=== PATIENT | female | born 1970 | race Caucasian/White ===

== ENCOUNTER 2019-09-26 21:54 | Inpatient (IN) | payer OTHER, SELFPAY ==
[~2019-09-26] VITALS: Ht 167.6 cm; Wt 111.1 kg
--- NOTE | 2019-09-26 21:54 | NUR ---
PT TRANSFERED SELF FROM [facility] TO BED 10.
[2019-09-26 22:00] VITALS: BP 120/72
--- NOTE | 2019-09-26 22:00 | NUR ---
PT BIBA C/O SOB AND COUGH X1 WEEK. PT O2 AT 93% ON RA, PLACED ON 2L NC. PT SISTER TESTED + FOR COVID 19 2 WEEKS AGO, PT LIVES WITH SISTER. PT ON TAMIFLU AND TESALON PEARLES FROM PCP SINCE 09/22. ALSO REPORTS BURNING URINATION X1 DAY, TX WITH AZO
[2019-09-26] MEDS ORDERED: PROMETH/CODEINE 6.25-10MG/5ML 5 ML UDC PO ONE (22:30)
--- NOTE | 2019-09-26 22:48 | NUR ---
X-RAY AT BEDSIDE
[2019-09-26 23:05] LABS: LYMPHOCYTES # (AUTO) 0.8 K/uL (2.5-16.5); MEAN CORPUSCULAR HEMOGLOBIN 30 pg (27-31); WHITE BLOOD COUNT (AUTO) 3.3 K/uL (4.8-10.8)
[2019-09-26] MEDS ORDERED: AZITHROMYCIN 500 MG in DEXTROSE 5% 250 ML IV ONE (23:05)
[2019-09-26] MEDS ORDERED: ZINC SULF 220 MG CAP PO ONE (23:05)
[2019-09-26 23:08] LABS: BASOPHILS % (AUTO) 1.4 % (0.0-2.0); EOSINOPHILS % (AUTO) 0.1 % (0.0-4.0); HEMOGLOBIN 11.9 g/dL (12.0-16.0); LYMPHOCYTES % (AUTO) 23.2 % (20.5-51.1); MEAN CORPUSCULAR HGB CONC 33 g/dL (33-37); MEAN CORPUSCULAR VOLUME 91.4 fL (80-94); MONOCYTES # (AUTO) 0.2 K/uL (0.8-1.0); NEUTROPHILS # (AUTO) 2.3 K/uL (1.8-7.7); NEUTROPHILS % (AUTO) 68.3 % (42.2-75.2); PLATELET COUNT (AUTO) 146 K/uL (140-450); RED BLOOD CELL COUNT(AUTO) 3.93 MIL/uL (4.20-5.40); RED CELL DISTRIBUTION WIDTH 13.1 % (11.6-13.7)
[2019-09-26] MEDS ORDERED: cefTRIAXone 1,000 MG VIAL ONE (23:09)
[2019-09-26] MEDS ORDERED: AZITHROMYCIN 500 MG INJ VIAL IV ONE (23:15)
[2019-09-26 23:16] LABS: ANION GAP 12.9 (8-16); CARBON DIOXIDE 27.3 mmol/L (21-32); CREATININE 0.9 mg/dL (0.6-1.3); POTASSIUM 3.2 mmol/L (3.5-5.1); TOTAL BILIRUBIN 0.5 mg/dL (0.0-1.0)
[2019-09-26] MEDS ORDERED: HYDROXYCHLOROQUINE 200 MG TAB PO SCH (23:35)
[2019-09-26 23:43] LABS: APPEARANCE,URINE HAZY (CLEAR); BILIRUBIN,URINE NEGATIVE (NEGATIVE); BLOOD, URINE 3+ (NEGATIVE); COLOR,URINE ORANGE (YELLOW); LEUKOCYTE ESTERASE ,URINE TRACE (NEGATIVE); NITRITE, URINE POSITIVE (NEGATIVE); UGLUCOSE TRACE (NEGATIVE)
[2019-09-27] VITALS (10 sets, daily range): BP systolic 90–106; BP diastolic 45–70
[2019-09-27 00:14] LABS: PROTHROMBIN TIME 9.8 secs (10.8-13.4)
[2019-09-27 00:18] LABS: RBC,URINE TOO NUMEROUS TO COUN /HPF (0-5); WBC,URINE 16-25 (MOD) /HPF (0-5)
--- NOTE | 2019-09-27 00:25 | NUR ---
PT BP 89/44, DR DENNISON NOTIFIED, DR DENNISON TO ORDER FLUIDS FOR PT.
[2019-09-27] MEDS ORDERED: NACL 0.9% 3,500 ML IV ONE (00:30)
[2019-09-27] MEDS ORDERED: MORPHINE SULFATE 2 MG/ML SYR IVP PRN (01:40)
[2019-09-27] MEDS ORDERED: HYDROcodone/APAP 5/325 MG 1 TAB TAB PO PRN (01:40)
[2019-09-27] MEDS ORDERED: DOCUSATE SODIUM 100 MG GELCAP PO PRN (01:40)
[2019-09-27] MEDS ORDERED: POTASSIUM CHLORIDE 10 MEQ TABER PO SCH (02:00)
--- NOTE | 2019-09-27 02:10 | NUR ---
PATIENT CAME INTO UNIT VIA GURNEY. BEDSIDE REPORT GIVEN BY ED NURSE JOO. PATIENT IS AMBULATORY. AAOX4. NO SOB OR DISTRESS NOTED ON 2LPM VIA NASAL CANNULA. IV ACCESS ON RIGHT AC 20 GAUGE PATENT AND INTACT AND RIGHT HAND 22 GAUGE, PATENT AND INTACT. INITIAL ASSESSMENT DONE. SKIN IS INTACT. MRSA SWAB DONE AND SENT TO [facility]. DRY WEIGHT OF 113KG. CONNECTED TO BEDSIDE MONITOR. BED IN LOW, BED LOCKED. SAFETY MEASURES IN PLACE. CALL LIGHT PLACED WITHIN PATIENT REACH. WILL CONTINUE TO MONITOR PATIENT. Addendum: 09/27/19 at 0615 by Susana Plasencia RN PATIENT NOTED WITH LEFT MASTECTOMY.
[2019-09-27 02:12] LABS: BARBITURATE, URINE NEGATIVE ng/ml (NEG <=200); BENZODIAZEPINE, URINE NEGATIVE ng/mL (NEG <=200); CANNABINOID, URINE NEGATIVE ng/mL (NEG <=50); COCAINE, URINE NEGATIVE ng/mL (NEG <=300); OPIATE, URINE NEGATIVE ng/mL (NEG <=2000); PHENCYCLIDINE SCREEN,URINE NEGATIVE ng/mL (NEG <=25)
--- NOTE | 2019-09-27 02:15 | NUR ---
Patient will be admitted to care of [facility]. Admited to ICU3. Belongings list completed. Report to IVAN JADE.
[2019-09-27 02:34] LABS: CHOL/HDL RATIO 4.3 (1-4.5); MAGNESIUM 2.2 mg/dL (1.8-2.4); PHOSPHORUS 1.5 mg/dL (2.5-4.9); THYROID STIMULATING HORMONE 1.98 uIU/mL (0.34-3.74)
--- NOTE | 2019-09-27 02:55 | NUR ---
PT REQUESTING BEDSIDE COMMODE. ABLE TO AMBULATE TO COMMODE AND BACK TO BED WITHOUT INCIDENT. SATURATIONS SLIGHTLY DROP TO 89-90% WHEN NASAL CANNULA IS TEMPORARILY REMOVED. SMALL BM, LIQUID AND BROWN. NO COMPLAINTS OF PAIN. PT PROVIDED HYGIENE PRODUCTS.
[2019-09-27] MEDS ORDERED: VANCOMYCIN 1,000 MG in DEXTROSE 5% 250 ML IV ONE (03:30)
[2019-09-27] MEDS ORDERED: TAMO20TA3 PO (03:46)
[2019-09-27] MEDS: NACL 0.9% 1,000 ML IV SCH (04:09)
[2019-09-27] MEDS ORDERED: VANCOMYCIN 1,000 MG VIAL ONE (04:14)
--- NOTE | 2019-09-27 04:45 | NUR ---
TIME OUT PERFORMED, CORRECT PATIENT AND PROCEDURE, RESIDENT MD AT BEDSIDE TO PERFORM CENTRAL LINE INSERTION. IVP MORPHINE GIVEN PRIOR TO PROCEDURE. ALL SAFETY PRECAUTIONS MET THROUGHOUT PROCEDURE, PT TOLERATED WELL. ONLY ONE ATTEMPT. ALL LUMEN FLUSHED WITH HEPARIN PER ORDER AND SALINE LOCKED. ALL SHARPS DISPOSED IN SHARPS CONTAINER. XRAY AT BEDSIDE TO CONFIRM PLACEMENT. PENDING CONFIRMATION.
[2019-09-27] MEDS ORDERED: SODIUM PHOSPHATE 15 MMOLE in NACL 0.9% 250 ML IV SCH ×2 (06:00→07:17)
--- NOTE | 2019-09-27 07:30 | NUR ---
PATIENT AWAKE AND ALERT IN BED, SITTING UP. 2L NC, SATURATIONS 95%, BREATHING IS EVEN AND UNLABORED. SMALL PRODUCTIVE COUGH, SCANT WHITE SECRETIONS. LUNG SOUNDS DIMINISHED TO RIGHT SIDE AND LEFT SIDE SMALL CRACKLES. SOME SOB, BUT ABLE TO ANSWER QUESTIONS WITHOUT DIFFICULTY, DENIES CHEST PAIN. S1S2, SR ON MONITOR. BP STABLE. RIGHT AC 20G, AND RIGHT HAND 22 G, BOTH PATENT AND ASYMPTOMATIC. RIGHT IJ IN PLACE, INTACT, FLUSHED AND PATENT WITHOUT SYMPTOMS. SKIN WARM AND DRY, AFEBRILE. BEDSIDE COMMODE IN PLACE. ABDOMEN LARGE SOFT AND NONTENDER, ACTIVE BOWEL SOUNDS. LEFT SIDE MASECTOMY NOTED. DENIES N/V/PAIN, REPORTS SOME DIARRHEA. DROPLET PRECAUTIONS IN PLACE. SIDERAILS UP x2, CALL LIGHT WITHIN REACH, ORIENTED TO TREATMENT, HOB HIGH FOWLERS, WILL CONTINUE TO MONITOR.
--- NOTE | 2019-09-27 08:00 | NUR ---
SPOKE WITH PATIENTS DAUGHTER LINDA, UPDATED ON PATIENTS CONDITION. DAUGHTER REPORTED THAT THE RELATIVE TESTED POSITIVE FOR COVID 19 THAT LIVES WITH PATIENT, HAS ALREADY BEEN RECEIVING TREATMENT AT HOME AND ALREADY SEEN SIGNIFICANT IMPROVEMENT. NO CONCERNS AT THIS TIME, ALL QUESTIONS ANSWERED.
--- NOTE | 2019-09-27 08:37 | NUR ---
PATIENT HAS BEEN SCREENED AND CATEGORIZED HIGH NUTRITION RISK. PATIENT WILL BE SEEN WITHIN 1-2 DAYS OF ADMISSION. 09/27/19-09/28/[address]
[2019-09-27] MEDS: TAMOXIFEN 10 MG TAB PO SCH ×2 (08:44→20:33)
[2019-09-27] MEDS ORDERED: ZINC SULF 220 MG CAP PO SCH (09:00)
[2019-09-27] MEDS ORDERED: HYDROXYCHLOROQUINE 200 MG TAB PO SCH ×2 (09:00)
[2019-09-27] MEDS ORDERED: ENOXAPARIN 40 MG/0.4 ML SYR SUBQ SCH (09:00)
[2019-09-27] MEDS ORDERED: TAMOXIFEN CITRATE PO SCH (09:00)
[2019-09-27] MEDS: ZINC SULF 220 MG CAP PO SCH (09:26)
[2019-09-27] MEDS: HYDROXYCHLOROQUINE 200 MG TAB PO SCH (09:26)
[2019-09-27] MEDS: ASCORBIC ACID 500 MG TAB PO SCH (09:26)
--- NOTE | 2019-09-27 09:30 | NUR ---
ALL MEDS GIVEN, PATIENT ABLE TO SWALLOW PO MEDS WITHOUT DIFFICULTY. ASSISTED PATIENT TO BEDSIDE COMMODE, ANOTHER SMALL LOOSE STOOL NOTED.PT INDEPENDENT, PROVIDED WIPES FOR PERINEAL CARE. BACK IN BED AND CONNECTED TO MONITOR AND IV LINES. REINFORCED NASAL CANNULA, HEPARIN GIVEN SUBQ ORDERED. AFTER LEAVING PATIENTS ROOM, NEW ORDERS HAD BEEN PLACED, RESIDENT MD AWARE THAT HEPARIN WAS ALREADY GIVEN, RESIDENT MD CONFIRMED ITS OK, WILL CONTINUE HEPARIN TONIGHT AND STARTING TOMORROW LOVENOX WILL BE STARTED INSTEAD.
--- NOTE | 2019-09-27 10:14 | NUR ---
DISCHARGE PLANNING: THIS IS A 49 Y/O FEMALE PATIENT FROM HOME, WHO CAME IN DUE TO FEVER, COUGH AND SOB X 6 DAYS. PAST MEDICAL AND SURGICAL HISTORY INCLUDE LEFT BREAST CA AND LEFT BREAST MASTECTOMY. INITIAL DIAGNOSIS OF PNA AND POSSIBLE COVID. CURRENT LABS INCLUDE 3.3, H/H 11.9/36.0, NA/K 136/3.2, BUN/CREA 6/0.9, LACTIC ACID 1.0, C REACTIVE PROTEIN 3.6 AND TROP 0.017. COVID 19 PENDING. INF A AND B NEGATIVE. CXR SHOWED PATCHY BILATERAL PULMONARY INFILTRATES. CURRENT CXR SHOWED INCREASING BILATERAL CONSOLIDATIONS. PULMONARY AND ID CONSULTS IN PLACE. ON AZITHROMYCIN. DC PLAN PENDING ON PATIENT'S RESPONSE TO TREATMENT. Addendum: 09/28/19 at 0918 by Evelin Quan CM 08: CONTACTED WINONA AT [phone], ABLE TO SPEAK TO CARLENE (ANSWERING SERVICE). HE STATED THE CASE IS NOT ASSIGNED UNTIL 929. CM WILL FOLLOW UP. Addendum: 09/28/19 at 1021 by Evelin Quan CM CONTACTED JO AT [phone], ABLE TO SPEAK TO RAMONA. HE STATED THE CM ASSIGNED TODAY IS DEBORA FLORENTINO AND THE BOBBIN CLEANER IS ARNAV HOWEVER THEY ARE BOTH IN THE MEETING AND HE WILL RELAY THE MESSAGE REGARDING AUTH FOR TODAY'S STAY. CM WILL FOLLOW UP. Addendum: 09/28/19 at 1202 by Evelin Quan CM CONTACTED OJ AGAIN AT [phone], ABLE TO SPEAK TO RAMONA ANSWERING SERVICE. REQUESTED TO BE TRANSFERRED TO [facility] [employer]OBBIN CLE[employer]ER FOR CM OSEI. HE STATED THEY RECEIVED THE CLINICALS FOR THE PATIENT AND IS REVIEWING IT. UPDATED HIM THAT COVID 19 RESULTS IS STILL PENDING. HE ALSO STATED THAT ONCE REVIEW IS DONE THEY WILL FAX US OVER THE AUTH. PROVIDED HIM OF THE FAX NUMBER AND CONTACT INFO. Addendum: 09/29/19 at 1348 by Evelin Quan CM STILL IN ICU, ON O2 PER NC AT 4 LPM, O2 SAT 96%. COVID 19 POSITIVE. ON ROCEPHIN, AZITHROMYCIN, PLAQUENIL AND ZINC SULFATE. CURRENT LABS INCLUDE WBC 4.1, H/H 9.7/28.7, NA/K 141/3.0, BUN/CREA 2.0.8 AND MAG 1.9. STOOL C DIFF PENDING. NO MRSA ISOLATED. URINE C/S PRELIMINARY RESULT SHOWED GRAM NEGATIVE RODS. BLOOD CS NO GROWTH AFTER 48 HOURS. SEEN BY ID CONSULT-TO CONTINUE CURRENT THERAPY. DC PLAN PENDING ON PATIENT'S RESPONSE TO TREATMENT. CONTACTED WINONA AT [phone], ABLE TO SPEAK TO BARRINGTON CHURCH. UPDATED HER OF THE PATIENT'S CONDITION (+) COVID-19. I ALSO INFORMED HER THAT PATIENT IS STABLE FOR TRANSFER TODAY. SHE REPLIED THAT THEY DO NOT TRANSFER PATIENT ONCE POSITIVE. I ASKED HER THE AUTH FOR TODAY'S STAY, SHE STATED THEY WILL FAX IT OVER ONCE DONE WITH REVIEW. I ALSO ASKED FOR LAUREN FERNÁNDEZ'S (CERTIFIED NURSE OPERATING ROOM ASSIGNED FOR TODAY) PHONE NUMBER, SHE STATED TO CALL THE SAME NUMBER AND ALL THEIR SAMPLE ROOM SUPERVISOR ARE WORKING REMOTELY. I PROVIDED HER OF MY CONTACT INFO IF IN ANY CASE THEY WILL BE NEEDING MORE INFO. POST STABILIZATION FORM FAXED. Addendum: 09/30/19 at 1016 by Evelin Quan CM CONTACTED WINONA AT [phone], ABLE TO SPEAK TO [facility] BOBBIN CLEANER WORKING WITH LAUREN FLORENTINO. SHE CONFIRMED RECEIVING CLINICALS FOR YESTERDAY AND TODAY AND IN THE PROCESS OF REVIEWING IT. I PROVIDED HER UPDATE ON THE PATIENT'S CONDITION. SHE ALSO CONFIRMED THAT THEY DO NOT TRANSFER PATIENT'S THAT ARE (+) COVID. PER [facility] WILL REVIEW THE CLINICALS TODAY AND WILL SEND AUTH. POST STAB FORM FAXED TO [phone]. Addendum: 09/30/19 at 1042 by Evelin Quan CM CORRECTION TO THE FAX NUMBER [phone] Addendum: 10/03/19 at 1101 by Evelin Quan CM CONTACTED WINONA AT [phone], ABLE TO SPEAK TO ANA CHURCH. SHE STATED LAUREN HERNANDEZ AND BOBBIN CLEANER TRACY ARE THE ONES ASSIGNED TODAY. SHE TRANSFERRED ME TO BOBBIN CLEANERLaura MOLINA. UPDATED HER OF THE PATIENT'S CONDITION. SHE STATED SHE WILL HAVE LAUREN HERNANDEZ TO CALL ME BACK. WILL FOLLOW UP.
--- NOTE | 2019-09-27 11:15 | NUR ---
PT STARTS TO DOZE OFF, WHEN SLEEPING SHE WILL ACCIDENTALLY PULL OFF NASAL CANNULA AND DESAT TO 80'S%. AT DEEP SLEEP SHE WILL DESAT TO 80's. REINFORCED CANNULA AND SECURED WITH TAPE, INCREASED TO 4L. ALL VITALS STABLE, REINFORCED EKG LEADS. NO COMPLAINTS AT THIS TIME
[2019-09-27 11:31] LABS: BASOPHILS % (AUTO) 1.3 % (0.0-2.0); HEMATOCRIT 31.3 % (36-48); HEMOGLOBIN 10.4 g/dL (12.0-16.0); LYMPHOCYTES # (AUTO) 0.7 K/uL (2.5-16.5); LYMPHOCYTES % (AUTO) 20.7 % (20.5-51.1); MEAN CORPUSCULAR HEMOGLOBIN 31 pg (27-31); MEAN CORPUSCULAR HGB CONC 33 g/dL (33-37); MONOCYTES # (AUTO) 0.2 K/uL (0.8-1.0); MONOCYTES % (AUTO) 6.5 % (1.7-9.3); NEUTROPHILS # (AUTO) 2.4 K/uL (1.8-7.7); NEUTROPHILS % (AUTO) 71.5 % (42.2-75.2); PLATELET COUNT (AUTO) 130 K/uL (140-450); RED BLOOD CELL COUNT(AUTO) 3.41 MIL/uL (4.20-5.40); RED CELL DISTRIBUTION WIDTH 13.6 % (11.6-13.7); WHITE BLOOD COUNT (AUTO) 3.4 K/uL (4.8-10.8)
--- NOTE | 2019-09-27 11:37 | NUR ---
Boiling House Oiler Note: Basic Screen: Yes High Risk DC Screen [place]: BARRY OCONNOR Home Relationship: Pre-Admission Living Arrangements: Lives with Other Prior ADL Independent Current Home Health Name/Tel: N/A Current DME/02 Name/Tel: N/A Current Hospice Name/Tel: N/A Current Dialysis Name/Tel: N/A Healthcare Decision Maker: Patient Advance Directive No Physician Orders for Life Sustaining Treatment Form No Patient/Family Have Educational Needs No Discipline: Case Mgt/Social Svcs Tentative Discharge Plan/Destination: No Needs Identified Will require assistance post discharge: No Referred to Configuration Technician: No Tentative Discharge Plan Summary: Patient is a 49 year old female admitted for pneumonia and r/o COVID. Patient has PMHX of left breast CA. Patient was admitted from home where she lives iwth her , sister, mother, and daughters. SW contacted patient's Barry Oconnor [phone] and left VM. SW contacted daughter Holly Oconnor to verify demographics [phone]. Per Holly, patient has no history of substance abuse or mental health. Katherine stated that patient is independent with all ADLs at baseline. Tentative discharge plan is for patient to return home. No further needs identified. Signature: AURORA Horta Date: Sep 27, 2019 Time: 11:36
--- NOTE | 2019-09-27 11:50 | NUR ---
UPDATED PATIENTS DAUGHTER LINDA ON PT CONDITION. VERBALIZES UNDERSTANDING OF TREATMENT. WILL MAKE PT AWARE OF DAUGHTER TRYING TO CALL HER ON CELL PHONE.
[2019-09-27 12:04] LABS: ALBUMIN 2.3 g/dL (3.4-5.0); CARBON DIOXIDE 24.8 mmol/L (21-32); CREATININE 0.7 mg/dL (0.6-1.3); POTASSIUM 3.8 mmol/L (3.5-5.1); TOTAL BILIRUBIN 0.4 mg/dL (0.0-1.0)
[2019-09-27 12:30] LABS: CKMB RELATIVE INDEX 0.1 (0.0-2.5); CREATINE KINASE MB 0.5 ng/mL (0-3.6)
--- NOTE | 2019-09-27 12:30 | NUR ---
REPORT RECEIVED FROM LIGHTING SPECIALIST NURSE FOR CONTINUATION OF CARE. PT IS RESPONSIVE. TEMPERATURE NOTED AT 98.5. IV AT 20MLS/HR. PT EATING LUNCH AT THIS TIE. WILL CONTINUE TO MONITOR.
--- NOTE | 2019-09-27 14:21 | NUR ---
09/27/19 RD INITIAL ASSESSMENT COMPLETED PLEASE REFER TO NUTRITION ASSESSMENT UNDER CARE ACTIVITY FOR ESTIMATED NUTRITIONAL NEEDS. 1. CONTINUE CLEAR LIQUID DIET TOLERATED 2. RECOMMEND ENSURE CLEAR TID 3. IF/WHEN PATIENT IS MEDICALLY STABLE CONSIDER ADVANCING DIET TO REGULAR WITH ENSURE BID 4. RD TO FOLLOW-UP 2-3 DAYS, HIGH RISK STAN [address]SON RD
--- NOTE | 2019-09-27 15:03 | NUR ---
PT IS RESTING IN BED. PT RESPONDS TO VERBAL STIMULI. O2 SATS AT 97%. HR AT 96. WILL CONTINUE TO MONITOR. CALL LIGHT IN REACH.
[2019-09-27] MEDS: ACETAMINOPHEN 325 MG TAB PO PRN ×2 (15:28→21:21)
--- NOTE | 2019-09-27 16:45 | NUR ---
PER DR DOHERTY. ROCEPHIN 1000MG QD TO BE ADMINISTERED. ORDER REPEATED AND VERIFIED.
--- NOTE | 2019-09-27 17:07 | NUR ---
PT IS SLEEPING BUT RESPONDS TO VERBAL STIMULI. O2 SATS AT 98, HR 80, R AR 21. PT ON 4L NC O2. WILL CONTINUE TO MONITOR. CALL LIGHT IN REACH.
--- NOTE | 2019-09-27 17:42 | NUR ---
PT IS HAVING DINNER AT THIS TIME. PT IS RESPONSIVE. O2 SATS AT 98, HR AT 82, R AT 18. NO COMPLAINS OF PAIN AT THIS TIME. PT IS ON 4L NC O2. WILL CONTINUE TO MONITOR.
--- NOTE | 2019-09-27 17:43 | NUR ---
PT IS ALERT AND ORIENTED ON 4L NC, WITH SPO2'S BETWEEN 95-99%. BREATH SOUNDS ARE CLEAR/DIMINISHED WITH NO RESPIRATORY DISTRESS NOTED AT THIS TIME. WILL CONTINUE TO MONITOR PT'S RESPIRATORY STATUS.
--- NOTE | 2019-09-27 19:16 | NUR ---
SHIFT REPORT GIVEN TO GYMNASTIC TEACHER NURSE FOR CONTINUATION OF CARE. PT WILL BE CONTINUED TO BE MONITORED. CALL LIGHT IN REACH.
--- NOTE | 2019-09-27 19:17 | NUR ---
RECEIVED BEDSIDE REPORT FROM AM SHIFT NURSE. PATIENT IS LYING IN BED, SUPINE, AWAKE AND ALERT. NO SOB OR DISTRESS NOTED. ON 4 LPM VIA NASAL CANNULA. IV ACCESS ON RIGHT AC 20 GAUGE SALINE LOCK AND RIGHT HAND 22 GAUGE, PATENT, INTACT AND INFUSING WELL. ALSO NOTED WITH A RIGHT IJ TRIPLE LUMEN, SALINE LOCK. INITIAL ASSESSMENT DONE. SKIN IS INTACT. PATIENT NOTED WITH LEFT MASTECTOMY SCAR. BED IN LOW, BED LOCKED, SAFETY MEASURES IN PLACE. ON ENHANCED PRECAUTIONS. CALL LIGHT WITHIN PATIENT REACH. WILL CONTINUE TO MONITOR PATIENT.
[2019-09-27] MEDS: AZITHROMYCIN 500 MG in DEXTROSE 5% 250 ML IV SCH (20:33)
--- NOTE | 2019-09-27 21:13 | NUR ---
PATIENT SHOWS NO SOB AT THIS TIME. NO MDI INHALER NEEDED.
--- NOTE | 2019-09-27 21:21 | NUR ---
PRN TYLENOL GIVEN AT THIS TIME FOR ORAL TEMP OF 100.6. WILL CONTINUE TO MONITOR PATIENT.
--- NOTE | 2019-09-27 23:30 | NUR ---
REMOVED IV SITE AT RIGHT HAND DUE TO INFILTRATION.
[2019-09-28] VITALS: BP 108/47
--- NOTE | 2019-09-28 00:15 | NUR ---
VITALS DONE AT THIS TIME. NO DISTRESS NOTED. PATIENT RESTING WITH EYES CLOSED. WILL CONTINUE TO MONITOR PATIENT.
[2019-09-28] MEDS: NACL 0.9% 1,000 ML IV SCH (00:54)
--- NOTE | 2019-09-28 04:15 | NUR ---
VITALS DONE. VISIBLE CHEST RISE AND FALL NOTED. WILL CONTINUE TO MONITOR PATIENT.
[2019-09-28 04:16] VITALS: BP 84/54
[2019-09-28] MEDS: ALBUTEROL HFA MDI 90 MCG/ACTUATION 8 GM INH PRN ×2 (04:53→14:40)
--- NOTE | 2019-09-28 04:56 | NUR ---
0450 PATIENT ASKED FOR MDI INHALER. PATIENT GIVEN 2 PUFFS WITH ALBUTEROL WITH AEROCHAMBER. PATIENT WAS ABLE TO TAKE GOOD DEEP BREATHS. SATS 95% ON 4LNC. BREATH SOUNDS ARE DECREASED BILAT
[2019-09-28 06:13] LABS: ALBUMIN 2.3 g/dL (3.4-5.0); ANION GAP 9.8 (8-16); CARBON DIOXIDE 28.7 mmol/L (21-32); CREATININE 0.8 mg/dL (0.6-1.3); POTASSIUM 3.5 mmol/L (3.5-5.1); TOTAL BILIRUBIN 0.3 mg/dL (0.0-1.0)
[2019-09-28 06:50] LABS: BASOPHILS % (AUTO) 0.5 % (0.0-2.0); EOSINOPHILS % (AUTO) 0.1 % (0.0-4.0); HEMATOCRIT 32.4 % (36-48); HEMOGLOBIN 10.8 g/dL (12.0-16.0); LYMPHOCYTES % (AUTO) 23.6 % (20.5-51.1); MEAN CORPUSCULAR HEMOGLOBIN 31 pg (27-31); MEAN CORPUSCULAR HGB CONC 33 g/dL (33-37); MEAN CORPUSCULAR VOLUME 92.1 fL (80-94); MONOCYTES # (AUTO) 0.3 K/uL (0.8-1.0); MONOCYTES % (AUTO) 6.6 % (1.7-9.3); NEUTROPHILS # (AUTO) 2.8 K/uL (1.8-7.7); NEUTROPHILS % (AUTO) 69.2 % (42.2-75.2); PLATELET COUNT (AUTO) 162 K/uL (140-450); RED BLOOD CELL COUNT(AUTO) 3.52 MIL/uL (4.20-5.40); RED CELL DISTRIBUTION WIDTH 13.1 % (11.6-13.7); WHITE BLOOD COUNT (AUTO) 4.1 K/uL (4.8-10.8)
--- NOTE | 2019-09-28 07:30 | NUR ---
RECEIVED BEDSIDE REPORT FROM SYSTEMS ARCHITECT NURSE ABIMBOLA FOR CONTINUITY OF CARE. PT IS ALSEEP COMFORTABLY ON BED, ON 4 LPM VIA NC, SPO2 AT 95%. NO SIGNS OF DISTRESS NOTED. IV ON RAC 20G AND RIJ TRIPLE LUMEN, CLEAN AND INTACT, SALINE LOCK. RIJ INFUSING D5NS AT 20 ML/HR. SKIN CLEAN AND DRY. PT IS CONTINENT AND ABLE TO USE BEDSIDE COMMODE. TELE MONITOR, SPO2 MONITOR AND BP CUFF ATTACHED. DROPLET AND ENHANCED PRECAUTION IN PLACE. SAFETY MEASURES IN PLACE.
[2019-09-28 08:00] VITALS: BP 97/57
--- NOTE | 2019-09-28 08:19 | NUR ---
RECEIVED A CALL FROM PT'S DAUGHTER LINDA OCONNOR. UPDATED LINDA WITH PT'S CURRENT CONDITION AND ANSWERED ALL LINDA'S QUESTIONS.
[2019-09-28] MEDS: ZINC SULF 220 MG CAP PO SCH (08:48)
[2019-09-28] MEDS: TAMOXIFEN 10 MG TAB PO SCH ×2 (08:48→22:09)
[2019-09-28] MEDS: ASCORBIC ACID 500 MG TAB PO SCH (08:48)
[2019-09-28] MEDS: HYDROXYCHLOROQUINE 200 MG TAB PO SCH (08:48)
[2019-09-28] MEDS: ENOXAPARIN 40 MG/0.4 ML SYR SUBQ SCH (09:01)
--- NOTE | 2019-09-28 09:14 | NUR ---
CHECKED TEMP ORAL AND RECEIVED 99.2. ADMINISTERED AM SCHEDULED MEDS PER MD ORDER, MEDS EDUCATION PROVIDED TO PT AND PT VERBALIZED UNDERSTANDING. PT TOLERATED PO MEDS WELL. EXPLAINED TO PT THAT STOOL SAMPLE NEEDED AND SPECIMEN CUP PROVIDED, PT WAS AWARE. DR MAGALLON IS TALKING TO PT AT BEDSIDE. NO ACUTE DISTRESS NOTED. TELE MONITOR ATTACHED. SAFETY MEASURES IN PLACE. INSTRUCTED PT TO CALL FOR ASSISTANCE AND PT AWARE.
--- NOTE | 2019-09-28 11:17 | NUR ---
PT IS RESTING ON BED, EYES OPEN TO VOICE. RESPIRATION SYMMETRICAL AND UNLABORED ON 4 LPM VIA NC. DENIED PAIN, DIZZINESS AND NAUSEA. NO ACUTE DISTRESS NOTED. TELE MONITOR AND SPO2 MONITOR ATTACHED. SAFETY MEASURES IN PLACE.
[2019-09-28 12:00] VITALS: BP 104/61
--- NOTE | 2019-09-28 12:05 | NUR ---
PROVIDED LUNCH TRAY AND CHECK TEMP TEMPORALLY; RECEIVED 98.7.
--- NOTE | 2019-09-28 13:12 | NUR ---
PT IS RESTING ON BED COMFORTABLY. RESPIRATION EVEN AND UNLABORED ON 4 LPM VIA NC, SPO2 AT 94%. NO ACUTE DISTRESS NOTED. TELE MONITOR AND SPO2 MONITOR ATTACHED. SAFETY MEASURES IN PLACE.
--- NOTE | 2019-09-28 15:38 | NUR ---
WENT TO PT'S ROOM AND FIX THE IV PUMP, IV PATENT AND INTACT, CONTINUE INFUSING 20 ML/HR OF NS. CLEANED BED TOMAS, PT HAS ONE URINE WITH SOME WATERY YELLOW STOOL IN IT. PER PT, SHE WENT TO PEE BUT DOES NOT HAVE DIARRHEA, UNABLE TO COLLECT STOOL SPECIMEN AT THIS TIME. PT AWAKE AND RESTING ON BED. DENIED PAIN, DIZZINESS AND SOB. SPO2 AT 96% WITH 4 LPM VIA NC. NO ACUTE DISTRESS NOTED. TELE MONITOR AND SPO2 MONITOR ATTACHED. SAFETY MEASURES IN PLACE.
[2019-09-28 16:00] VITALS: BP 105/52
--- NOTE | 2019-09-28 16:32 | NUR ---
DR DOHERTY IS AT BEDSIDE.
--- NOTE | 2019-09-28 17:46 | NUR ---
PROVIDED DINNER TRAY. PT IS GETTING READY TO HAVE DINNER. DENIED PAIN, SOB, VOMITING. NO ACUTE DISTRESS NOTED. CLEANED BEDPAN AND THREW AWAY. NO BM AT THIS TIME. TELE MONITOR AND SPO2 ATTACHED. SAFETY MEASURES IN PLACE.
--- NOTE | 2019-09-28 18:47 | NUR ---
COLLECTED STOOL SAMPLE AND DELIVERED TO LAB.
--- NOTE | 2019-09-28 19:18 | NUR ---
ENDORSED PT AT BEDSIDE TO BEEF GRADER NURSE UBALDO FOR CONTINUITY OF CARE. PT AWAKE AND SITTING UP ON BED. NO SIGNS OF DISTRESS NOTED. PT IS IN STABLE CONDITION. TELE MONITOR AND SPO2 MONITOR ATTACHED.
--- NOTE | 2019-09-28 20:00 | NUR ---
RECEIVED PATIENT AWAKE, ALERT AND ORIENTED IN BED. PT O2 SAT 95% ON 4L NC. NO SOB/COUGH AT THIS TIME. DENIES PAIN AT THIS TIME. PT ON TELE MONITORING. BED LOWERED WITH CALL LIGHT WITHIN REACH. WILL CONTINUE TO MONITOR
[2019-09-28 21:00] VITALS: BP 100/61
[2019-09-28] MEDS: AZITHROMYCIN 500 MG in DEXTROSE 5% 250 ML IV SCH (21:28)
[2019-09-28] MEDS: FAMOTIDINE 20 MG TAB PO SCH (22:09)
[2019-09-28] MEDS: ONDANSETRON 4 MG/2 ML VIAL IM/IVP PRN (22:10)
--- NOTE | 2019-09-28 22:11 | NUR ---
ADMINISTERED SCHEDULED MEDS. PT TOLERATED WELL
[2019-09-29 00:09] VITALS: BP 100/42
[2019-09-29] MEDS: NACL 0.9% 1,000 ML IV SCH (00:44)
--- NOTE | 2019-09-29 03:31 | NUR ---
PT ASLEEP IN BED. NO ACUTE SIGNS OF DISTRESS NOTED. PT REMAINS ON 4L O2 VIA NC. O2 SAT 94%
[2019-09-29 04:50] VITALS: BP 99/55
[2019-09-29 06:13] LABS: BASOPHILS % (AUTO) 0.6 % (0.0-2.0); EOSINOPHILS % (AUTO) 0.2 % (0.0-4.0); HEMATOCRIT 28.7 % (36-48); HEMOGLOBIN 9.7 g/dL (12.0-16.0); LYMPHOCYTES # (AUTO) 0.8 K/uL (2.5-16.5); LYMPHOCYTES % (AUTO) 19.5 % (20.5-51.1); MEAN CORPUSCULAR HEMOGLOBIN 31 pg (27-31); MEAN CORPUSCULAR HGB CONC 34 g/dL (33-37); MEAN CORPUSCULAR VOLUME 91.3 fL (80-94); MONOCYTES # (AUTO) 0.3 K/uL (0.8-1.0); MONOCYTES % (AUTO) 6.7 % (1.7-9.3); PLATELET COUNT (AUTO) 176 K/uL (140-450); RED BLOOD CELL COUNT(AUTO) 3.14 MIL/uL (4.20-5.40); RED CELL DISTRIBUTION WIDTH 13.2 % (11.6-13.7); WHITE BLOOD COUNT (AUTO) 4.1 K/uL (4.8-10.8)
[2019-09-29 06:46] LABS: CREATININE 0.8 mg/dL (0.6-1.3)
[2019-09-29] MEDS ORDERED: VITC500 PO (07:11)
[2019-09-29] MEDS ORDERED: ALBU0.0912 INH (07:11)
--- NOTE | 2019-09-29 07:38 | NUR ---
RECEIVED REPORT AT BEDSIDE FOR CONTINUITY OF CARE. PATIENT IS AAOX4, ASLEEP IN BED DURING REPORT. PT O2 SAT 95% ON 4L/MIN VIA NC. NO SOB/COUGH AT THIS TIME. DENIES PAIN AT THIS TIME. PER CRIMINAL INTELLIGENCE SPECIALIST PT HAS HAS DIARRHEA THROUGHOUT CRIMINAL INTELLIGENCE SPECIALIST. PT HAS HAD NO EPISODES YET. WILL MONITOR CLOSELY FOR THAT. SKIN INTACT. AFEBRILE AT THIS TIME. SAFETY MEASURES IN PLACE. BED IN LOW POSITION WITH CALL LIGHT WITHIN REACH. WILL ROUND CLOSELY THROUGHOUT SHIFT.
[2019-09-29 08:00] VITALS: BP 99/57
[2019-09-29] MEDS ORDERED: POTASSIUM CHLORIDE 10 MEQ TABER PO SCH (09:00)
[2019-09-29] MEDS: ZINC SULF 220 MG CAP PO SCH (10:03)
[2019-09-29] MEDS: ASCORBIC ACID 500 MG TAB PO SCH (10:03)
[2019-09-29] MEDS: HYDROXYCHLOROQUINE 200 MG TAB PO SCH (10:05)
[2019-09-29] MEDS: ENOXAPARIN 40 MG/0.4 ML SYR SUBQ SCH (10:05)
[2019-09-29] MEDS: FAMOTIDINE 20 MG TAB PO SCH ×2 (10:05→23:29)
[2019-09-29] MEDS: TAMOXIFEN 10 MG TAB PO SCH ×2 (10:05→23:29)
--- NOTE | 2019-09-29 10:09 | NUR ---
ADMINISTERED PT MORNING MEDS. PT TOLERATED WELL. PT HAD 1 EPISODE OF DIARRHEA. PT ATE ALL BREAKFAST. PT STATES NO APPETITE CHANGES. ALL NEEDS CURRENTLY MET. WILL CONTINUE TO MONITOR PT CLOSELY.
--- NOTE | 2019-09-29 11:24 | NUR ---
PT RESTING IN BED. ALL NEEDS MET. WILL CONTINUE TO MONITOR PT CLOSELY. BED IN LOW POSITION, CALL LIGHT WITHIN REACH.
[2019-09-29 12:00] VITALS: BP 95/48
--- NOTE | 2019-09-29 13:40 | NUR ---
PT RESTING IN BED. ALL NEEDS MET. WILL CONTINUE TO MONITOR PT CLOSELY.
--- NOTE | 2019-09-29 15:18 | NUR ---
PT ASLEEP. ALL NEEDS MET. WILL CONTINUE TO MONITOR PT CLOSELY.
[2019-09-29 16:00] VITALS: BP 94/62
--- NOTE | 2019-09-29 17:55 | NUR ---
PT RESTING IN BED HAVING DINNER. ALL NEEDS MET. WILL CONTINUE TO MONITOR PT CLOSELY.
--- NOTE | 2019-09-29 19:25 | NUR ---
ENDORSED PT TO FLIGHT CONTROLS ENGINEER RN FOR CONTINUITY OF CARE. PT IN STABLE CONDITION AT THIS TIME.
--- NOTE | 2019-09-29 19:30 | NUR ---
RECEIVED CHANGE OF SHIFT REPORT AT BEDSIDE FROM DAY SHIFT NURSE. PT DOES NOT APPEAR TO BE IN DISTRESS. PT IS AWAKE AND ALERT. A&OX4. ON O2 VIA NC AT 3LPM. PT IS TOLERATING NC WELL W/ SPO2 ABOVE 90%. PT IS SR ON MONITOR. S1S2 HEARD. CAP REFILL <3 SECONDS. PT HAS RIGHT AC 20G THAT IS ASYMPTOMATIC, PATENT AND INTACT. PT ALSO HAS RIGHT IJ TRIPLE LUMEN THAT IS RUNNING NS AT 10ML/HR. IJ IS ASYMPTOMATIC, PATENT AND INTACT. PT IS ABLE TO MOVE ALL FOUR EXTREMITIES WELL AND IS ABLE TO USE THE BEDSIDE COMMODE. BED IS LOCKED IN LOW POSITION W/ HOB 30 DEGREES. SAFETY MEASURES IN PLACE. WILL CONTINUE TO MONITOR.
[2019-09-29 20:00] VITALS: BP 91/50
[2019-09-29] MEDS ORDERED: PANTOPRAZOLE 40 MG INJ VIAL IVP SCH (20:55)
--- NOTE | 2019-09-29 21:00 | NUR ---
PT IS AWAKE, ON HER CELLULAR DEVICE. NO DISTRESS NOTED. PT DENIES PAIN. HOWEVER, PT DID EXPRESS TO NURSE THAT SHE HAD A BM W/ UNDIGESTED MEDICATIONS. WHEN CHECKED, THERE WERE 3 WHOLE PILLS IN BEDSIDE COMMODE. WILL CONTINUE TO MONITOR.
--- NOTE | 2019-09-29 21:30 | NUR ---
PT REFUSED TO TAKE NOLVADEX AT THIS TIME DUE TO COMPLAINT OF UPSET STOMACH SECONDARY TO MEDICATION. PT STATED SHE USUALLY TAKES MEDICATION W/ PEPCID. DOCTOR WAS MADE AWARE
[2019-09-29] MEDS: AZITHROMYCIN 500 MG in DEXTROSE 5% 250 ML IV SCH (21:33)
[2019-09-29] MEDS ORDERED: ceFAZolin 1,000 MG VIAL ONE (23:00)
--- NOTE | 2019-09-29 23:29 | NUR ---
PEPCID AND NOLVADEX ADMINISTERED AT THIS TIME. PT DENIES PAIN AND IS IN NO DISTRESS. BED IS LOCKED IN LOW POSITION. HOB 30 DEGREES. WILL CONTINUE TO MONITOR.
[2019-09-30] VITALS: BP 110/64
[2019-09-30] MEDS: NACL 0.9% 1,000 ML IV SCH (00:44)
--- NOTE | 2019-09-30 01:00 | NUR ---
PT APPEARED TO BE RESTING W/ EYES CLOSED. VSS AT THIS TIME. PT ON NC AT 3LPM TO MAINTAIN SPO2 ABOVE 90. BED IS LOCKED IN LOW POSITION. SAFETY MEASURES IN PLACE. WILL CONTINUE TO MONITOR.
--- NOTE | 2019-09-30 03:22 | NUR ---
CHECKED IN ON PT. PT IS APPEARED TO BE RESTING W/ EYES CLOSED. PT IS POSITIONED ON LEFT SIDE. NO SIGNS OF DISTRESS NOTED. ROOM IS CLEANED W/ TRASH AND USED LINENS TAKEN OUT. WILL CONTINUE TO MONITOR.
[2019-09-30 04:00] VITALS: BP 102/59
[2019-09-30] MEDS ORDERED: ceFAZolin 1,000 MG VIAL ONE (04:20)
--- NOTE | 2019-09-30 05:28 | NUR ---
PT APPEARS TO BE RESTING. PT AROUSABLE BY VOICE. PT IS A&OX4. PT REPORTS NO APPARENT DISTRESS NOR PAIN. RIGHT IJ DRESSING DCI. VSS AT THIS TIME. SR ON MONITOR. PT ON O2 VIA NC AT 4LPM. TO MAINTAIN SPO2 ABOVE 90%. BED IS LOCKED. SAFETY MEASURES IN PLACE. CALL LIGHT WITHIN REACH. WILL CONTINUE TO MONITOR.
[2019-09-30 06:22] LABS: BASOPHILS % (AUTO) 0.6 % (0.0-2.0); EOSINOPHILS % (AUTO) 0.2 % (0.0-4.0); HEMATOCRIT 28.8 % (36-48); HEMOGLOBIN 9.6 g/dL (12.0-16.0); LYMPHOCYTES # (AUTO) 0.8 K/uL (2.5-16.5); LYMPHOCYTES % (AUTO) 14.1 % (20.5-51.1); MEAN CORPUSCULAR HEMOGLOBIN 31 pg (27-31); MEAN CORPUSCULAR HGB CONC 33 g/dL (33-37); MEAN CORPUSCULAR VOLUME 91.5 fL (80-94); MONOCYTES # (AUTO) 0.6 K/uL (0.8-1.0); MONOCYTES % (AUTO) 10.3 % (1.7-9.3); NEUTROPHILS # (AUTO) 4.3 K/uL (1.8-7.7); NEUTROPHILS % (AUTO) 74.8 % (42.2-75.2); PLATELET COUNT (AUTO) 231 K/uL (140-450); RED BLOOD CELL COUNT(AUTO) 3.15 MIL/uL (4.20-5.40); WHITE BLOOD COUNT (AUTO) 5.8 K/uL (4.8-10.8)
[2019-09-30 06:25] LABS: ALBUMIN 2.1 g/dL (3.4-5.0); ANION GAP 11.9 (8-16); ASPARTATE AMINOTRANSFERASE 52 U/L (15-37); CARBON DIOXIDE 26.7 mmol/L (21-32); CHLORIDE 104 mmol/L (98-107); CREATININE 0.7 mg/dL (0.6-1.3); GFR ARICAN-AMERICAN 115 mL/min (>90); GLUCOSE 109 mg/dL (74-106); POTASSIUM 3.6 mmol/L (3.5-5.1); SODIUM SERUM 139 mmol/L (136-145); TOTAL BILIRUBIN 0.6 mg/dL (0.0-1.0); UREA NITROGEN, BLOOD 4 mg/dL (7-18)
--- NOTE | 2019-09-30 07:20 | NUR ---
BEDSIDE REPORT RECEIVED FROM WASTEWATER TREATMENT OPERATOR NURSE, PT IN ISOLATION ROOM, PT RESTING QUIETLY WITH EYES CLOSED, PT AROUSES EASILY TO VOICE, DENIES PAIN, OX4, SPEAKS CLEARLY, RESP EVEN UNLABORED, SHALLOW AND SLIGHTLY TACHYPNEAC, O2 VIA NC AT 4L, BS DIMINISHED, OCCASIONAL DRY COUGHS, PT ON CARDIOPULMONARY MONITOR, VS STABLE, CENTRAL LINE TO R IJ, SITE WNL, R AC S/L IV SITE WNL, ABD SOFT, NON DISTENDED, ALL SAFETY MEASURES IN PLACE, CALL VAUGHN WITH IN REACH, POC REVIEWED, WILL CONTINUE TO MONITOR
[2019-09-30 08:00] VITALS: BP 100/61
[2019-09-30] MEDS: TAMOXIFEN 10 MG TAB PO SCH ×4 (08:18→21:32)
[2019-09-30] MEDS: ZINC SULF 220 MG CAP PO SCH (08:18)
[2019-09-30] MEDS: HYDROXYCHLOROQUINE 200 MG TAB PO SCH (08:19)
[2019-09-30] MEDS: ASCORBIC ACID 500 MG TAB PO SCH (08:19)
[2019-09-30] MEDS: FAMOTIDINE 20 MG TAB PO SCH ×2 (08:20→21:32)
[2019-09-30] MEDS: ENOXAPARIN 40 MG/0.4 ML SYR SUBQ SCH (08:26)
[2019-09-30] MEDS: ACETAMINOPHEN 325 MG TAB PO PRN ×2 (08:30→16:30)
--- NOTE | 2019-09-30 09:05 | NUR ---
DR MAGALLON AT BEDSIDE, NOTIFIED OF FEVER, TYLENOL GIVEN FOR TEMP 101.4, PT SHORTY PILLS WITHOUT PROBLEM
[2019-09-30 12:00] VITALS: BP 97/52
--- NOTE | 2019-09-30 12:08 | NUR ---
PT UP TO BEDSIDE COMMODE WITHOUT PROBLEM, DIARRHEA X2 TODAY, DR LLAMAS NOTIFIED, PT ALSO STATES SHE TAKES ANTINEOPLASM MED ONLY ONCE A DAY AT NIGHT TIME, DR MARIA NOTIFIED.
[2019-09-30] MEDS ORDERED: LOPERAMIDE 2 MG CAP PO SCH (13:00)
--- NOTE | 2019-09-30 13:41 | NUR ---
09/30/19 RD INITIAL ASSESSMENT COMPLETED PLEASE REFER TO NUTRITION ASSESSMENT UNDER CARE ACTIVITY FOR ESTIMATED NUTRITIONAL NEEDS. 1. CONTINUE REGULAR DIET WITH ENSURE CLEAR TID TOLERATED 2. ENCOURAGE INCREASING PO INTAKE 3. PROVIDE PATIENTS FOOD PREFERENCES 4. RD TO FOLLOW-UP 3-5 DAYS, MODERATE RISK STAN GOODSON, RD
--- NOTE | 2019-09-30 14:00 | NUR ---
IMMODIUM GIVEN PER ORDER, PT RESTING QUIETLY, DENIES PAIN OR DISCOMFORT, CALL VAUGHN WITHIN REACH, WILL CONTINUE TO MONITR
[2019-09-30 16:00] VITALS: BP 93/46
[2019-09-30] MEDS: ONDANSETRON 4 MG/2 ML VIAL IM/IVP PRN (16:30)
--- NOTE | 2019-09-30 16:38 | NUR ---
PT C/O NAUSEA, TEMP 101.1, TYLENOL AND ZOFRAN GIVEN, PT STATES SHE HAS NOT HAD ANY MORE DIARRHEA SINCE IMMODIUM.
--- NOTE | 2019-09-30 18:20 | NUR ---
PT STATES NAUSEA IS BETTER, AND NO DIARRHEA THIS AFTERNOON, RESP EVEN UNLABORED, DENIES PAIN OR DISCOMFORT, STILL WITH LOW APPETITE BUT NAUSEA IS BETTER.
--- NOTE | 2019-09-30 19:30 | NUR ---
RECEIVED REPORT FROM SHANNON RN DAYSHIFT NURSE FOR CONTINUITY OF CARE, PT IN STABLE CONDITION. SHE IS AWAKE AND ALERT WITH N/C AT 3 LITERS RR ARE 36 02 STAT IS 95%. PT HAS R CENTRAL IJ TRIPLE LUMEN INTACT AND SALINE LOCKED. PT HR IS 86 B/P IS 96/73. ALL DROPLET PRECAUTIONS IN PLACE.
[2019-09-30 20:00] VITALS: BP 100/53
--- NOTE | 2019-09-30 21:33 | NUR ---
PT IS SITTING UP IN BED WITH NO S/S OF PAIN OR DISTRESS NOTED. SHE HAS A N/C RUNNING AT 3 LITERS WITH RR OF 33 AND 02 OF 94% TEMP IS 98.9 P 86 B/P 100/53. R IJ TRIPLE LUMEN INTACT AND FLUSHED PATENT. ANCEF HUNG AND IS RUNNING AT 100MLS/HR ORDERED. PT ALSO GIVEN ORDERED TAMOXIFEN FOR BREAST CA AND PEPCID FOR GERD. EDUCATION REGARDING MEDICATION PROVIDED AT BEDSIDE. ALL REQUESTED NEEDS ATTEND AND ALL DROPLET PRECAUTIONS IN PLACE.
--- NOTE | 2019-09-30 22:15 | NUR ---
POONAMEF COMPLETED ZITHROMAX HUNG AND IS RUNNING AT 250ML/HR. PT HAS NO ADVERSE REACTION TO MEDICATION. SHE IS SITTING UP WATCHING TV. PT CONTINUES WITH 3 LITERS VIA N/C AND IS STATING AT 96%. ALL DROPLET PRECAUTIONS IN PLACE.
[2019-09-30] MEDS: AZITHROMYCIN 500 MG in DEXTROSE 5% 250 ML IV SCH (22:38)
--- NOTE | 2019-09-30 23:15 | NUR ---
DR JOSE THE INFECTIOUS DISEASE MD CALLED AND ASKED IF WE CAN HAVE RESIDENT CONTINUE WITH HYDROXYCHLOROQUINE TO COMPLETE THE 5 DAY STRETCH OF THE MEDICATION RECOMMENDED. INFORMED RESIDENT MD THURMAN.
--- NOTE | 2019-09-30 23:49 | NUR ---
CHEST X-RAY DONE AT BEDSIDE.
[2019-10-01] VITALS: BP 94/52
--- NOTE | 2019-10-01 | NUR ---
PT IN BED AWAKE AND ALERT NO C/O VOICED V/S FOLLOWS: T 99.5 P 86 R 27 B/P 94/52 02 95% WITH 3 LITERS VIA N/C. PT GIVEN COOLING MEASURES FOR INCREASED TEMP. ALL REQUESTED NEEDS ATTENDED AND ALL UNIVERSAL PRECAUTIONS AND DROPLET PRECAUTIONS IN PLACE.
[2019-10-01 04:00] VITALS: BP 93/53
--- NOTE | 2019-10-01 04:00 | NUR ---
PT IN BED AOX4 T 98.9 P 88 B/P 93/62 02 93% WIT 3 LITERS VIA N/C. ALL REQUESTED NEEDS ATTENDED BY STAFF.
--- NOTE | 2019-10-01 05:00 | NUR ---
JEIMY HUNG AND RUNNING ORDERED.
[2019-10-01 05:28] LABS: BASOPHILS % (AUTO) 0.1 % (0.0-2.0); EOSINOPHILS % (AUTO) 0.4 % (0.0-4.0); HEMATOCRIT 27.5 % (36-48); HEMOGLOBIN 9.2 g/dL (12.0-16.0); LYMPHOCYTES # (AUTO) 0.8 K/uL (2.5-16.5); LYMPHOCYTES % (AUTO) 14.6 % (20.5-51.1); MEAN CORPUSCULAR HEMOGLOBIN 30 pg (27-31); MEAN CORPUSCULAR HGB CONC 33 g/dL (33-37); MEAN CORPUSCULAR VOLUME 91.3 fL (80-94); MONOCYTES # (AUTO) 0.6 K/uL (0.8-1.0); MONOCYTES % (AUTO) 10.6 % (1.7-9.3); NEUTROPHILS # (AUTO) 4.3 K/uL (1.8-7.7); NEUTROPHILS % (AUTO) 74.3 % (42.2-75.2); PLATELET COUNT (AUTO) 267 K/uL (140-450); RED BLOOD CELL COUNT(AUTO) 3.02 MIL/uL (4.20-5.40); WHITE BLOOD COUNT (AUTO) 5.8 K/uL (4.8-10.8)
[2019-10-01 06:31] LABS: ANION GAP 12.5 (8-16); CREATININE 0.8 mg/dL (0.6-1.3); POTASSIUM 3.5 mmol/L (3.5-5.1); TOTAL BILIRUBIN 0.6 mg/dL (0.0-1.0)
--- NOTE | 2019-10-01 06:45 | NUR ---
PT GIVEN ZOFRAN PER REQUEST FOR NAUSEA.
[2019-10-01] MEDS: ONDANSETRON 4 MG/2 ML VIAL IM/IVP PRN (06:58)
--- NOTE | 2019-10-01 07:24 | NUR ---
REPORT GIVEN TO LUIS RN DAYSHIFT NURSE AT BEDSIDE FOR CONTINUITY OF CARE.
--- NOTE | 2019-10-01 07:25 | NUR ---
RECEIVED REPORT FROM DRAFTER DETAIL NURSE CLAUDE AT BEDSIDE FOR CONTINUITY OF CARE, PT IN STABLE CONDITION. SHE IS ASLEEP, RESTING COMFORTABLY WITH O2 AT 3 LITERS VIA N/C, O2 SATURATION AT 93%, RESPIRATIONS EVEN AND UNLABORED. PT HAS R CENTRAL IJ TRIPLE LUMEN, INTACT, DRESSING CLEAN AND DRY, SALINE LOCKED. DROPLET ISOLATION PRECAUTIONS IN PLACE, CALL LIGHT WITHIN REACH, BED IN LOWEST POSITION WITH BRAKES ON, WILL CONTINUE TO MONITOR PATIENT.
[2019-10-01 08:00] VITALS: BP 99/49
[2019-10-01] MEDS ORDERED: POTASSIUM CHLORIDE 10 MEQ TABER PO PRN (08:05)
[2019-10-01] MEDS ORDERED: KCL 20 MEQ/WATER INJ PREMIX 200 ML IV PRN (08:05)
[2019-10-01] MEDS ORDERED: NACL 0.9% 1,000 ML IV SCH (08:30)
[2019-10-01] MEDS: ASCORBIC ACID 500 MG TAB PO SCH (08:40)
[2019-10-01] MEDS: HYDROXYCHLOROQUINE 200 MG TAB PO SCH ×2 (08:41→21:33)
[2019-10-01] MEDS: FAMOTIDINE 20 MG TAB PO SCH ×2 (08:41→21:32)
[2019-10-01] MEDS: ZINC SULF 220 MG CAP PO SCH (08:41)
[2019-10-01] MEDS: ENOXAPARIN 40 MG/0.4 ML SYR SUBQ SCH (08:43)
--- NOTE | 2019-10-01 08:45 | NUR ---
SCHEDULED MEDICATIONS GIVEN. PATIENT TOLERATED THEM WELL. PATIENT DENIES PAIN, HAS NO COMPLAINTS AT THIS TIME. VERBALIZED PLAN OF CARE WITH PT, SHE VERBALIZED UNDERSTANDING. PATIENT CURRENTLY SITTING UP IN BED EATING BREAKFAST. DROPLET PRECAUTIONS IN PLACE, CALL LIGHT WITHIN REACH, WILL CONTINUE TO MONITOR PATIENT.
[2019-10-01] MEDS ORDERED: HYDROXYCHLOROQUINE 200 MG TAB PO ONE (09:00)
[2019-10-01 12:00] VITALS: BP 90/53
--- NOTE | 2019-10-01 12:11 | NUR ---
ORDERED MEDICATION GIVEN TO PATIENT. PATIENT HAS NO COMPLAINTS AT THIS TIME. INFORMED HER OF TRANSFER TO ROOM 103, PATIENT VERBALIZED UNDERSTANDING. PATIENT ASKED ABOUT IMODIUM FOR HER DIARRHEA, WILL ENDORSE TO TREE TRIMMER HELPER WHEN GIVING REPORT. LUNCH SET UP FOR PATIENT. DROPLET PRECAUTIONS IN PLACE, CALL LIGHT WITHIN REACH, WILL CONTINUE TO MONITOR PATIENT.
--- NOTE | 2019-10-01 13:40 | NUR ---
PATIENT MOVED TO ROOM 103, REPORT GIVEN TO NURSE SHARIF AT BEDSIDE FOR CONTINUITY OF CARE. PATIENT TOOK ALL HER BELONGINGS WITH HER. PATIENT IN STABLE CONDITION.
--- NOTE | 2019-10-01 13:40 | NUR ---
RECEIVED PT TRANSFERRED FROM ICU FROM DC. PT IN STABLE CONDITION, DENIES PAIN, NO RESPIRATORY DISTRESS NOTED. RESPIRATIONS EVEN AND UNLABORED ON 3L O2 VIA NC. SKIN INTACT. PT AMBULATORY. OFFERED PT WATER AND ITEMS FOR PERSONAL CARE. BELONGINGS VERIFIED WITH [place]. MEDICATIONS LEFT IN MS MEDICATION ROOM. SAFETY MEASURES IN PLACE. CALL LIGHT WITHIN REACH. BED IN LOW POSITION. WILL CONTINUE TO MONITOR.
--- NOTE | 2019-10-01 15:52 | NUR ---
VITAL SIGNS TAKEN. PT AFEBRILE, NO RESPIRATORY DISTRESS NOTED ON ROOM AIR. SAFETY MEASURES IN PLACE. CALL LIGHT WITHIN REACH. WILL CONTINUE TO MONITOR.
[2019-10-01 16:00] VITALS: BP 95/51
[2019-10-01] MEDS: LOPERAMIDE 2 MG CAP PO PRN (16:40)
--- NOTE | 2019-10-01 18:02 | NUR ---
PT TRAY OFFERED TO PT. AFEBRILE, O2SAT 96%, NO RESPIRATORY DISTRESS NOTED. SAFETY MEASURES IN PLACE. CALL LIGHT WITHIN REACH. WILL ENDORSE TO NIGHT NURSE
--- NOTE | 2019-10-01 19:15 | NUR ---
REPORT GIVEN TO NIGHT NURSE FOR CONTINUITY OF CARE.
--- NOTE | 2019-10-01 19:15 | NUR ---
RECEIVED PT AAOX4 , NID - O2 SAT WNL - ON O2 AT 3LPM /NC . IV SITES INTACT AND PATENT , DENIES ANY PAIN AT THIS TIME. ON TELE - SR. SAFETY MEASURES IN PLACE . COVID19 POSITIVE - ON ISOLATION . POC DISCUSSED AND VERBALIZE UNDERSTANDING - CALL LIGHT WITHIN REACH . WILL CONT. TO MONITOR.
--- NOTE | 2019-10-01 19:23 | NUR ---
RECEIVED REPORT FROM AM SHIFT. PATIENT WAS SEEN AND ASSESSED. PATIENT IN NO APPARENT RESPIRATORY DISTRESS AT THIS TIME. SPO2 OF 95% ON 3L NASAL CANNULA. AUSCULTATION REVEALS BILATERAL COARSE BREATH SOUNDS. MDI PRN TX NO INDICATED AT THIS TIME. WILL CONTINUE TO MONITOR PATIENT.
[2019-10-01 20:00] VITALS: BP 90/60
[2019-10-01] MEDS: AZITHROMYCIN 500 MG in DEXTROSE 5% 250 ML IV SCH ×2 (21:32→22:30)
[2019-10-01] MEDS: TAMOXIFEN 10 MG TAB PO SCH (21:34)
[2019-10-02] VITALS: BP 91/60
--- NOTE | 2019-10-02 | NUR ---
MADE ROUNDS . NO COMPLAIN MADE AT THIS TIME . NO S/S OF ACUTE DISTRESS , WILL CONT. TO MONITOR. CALL LIGHT WITHIN REACH.
[2019-10-02 04:00] VITALS: BP 95/60
--- NOTE | 2019-10-02 04:00 | NUR ---
MADE ROUNDS . NO S/S OF ACUTE DISTRESS NOTED AT THIS TIME. WILL CONT. TO MONITOR.
[2019-10-02 06:17] LABS: BASOPHILS % (AUTO) 0.7 % (0.0-2.0); EOSINOPHILS % (AUTO) 0.9 % (0.0-4.0); HEMATOCRIT 28.3 % (36-48); HEMOGLOBIN 9.6 g/dL (12.0-16.0); LYMPHOCYTES # (AUTO) 0.7 K/uL (2.5-16.5); LYMPHOCYTES % (AUTO) 17.7 % (20.5-51.1); MEAN CORPUSCULAR HEMOGLOBIN 31 pg (27-31); MEAN CORPUSCULAR HGB CONC 34 g/dL (33-37); MONOCYTES # (AUTO) 0.5 K/uL (0.8-1.0); MONOCYTES % (AUTO) 12.5 % (1.7-9.3); NEUTROPHILS # (AUTO) 2.7 K/uL (1.8-7.7); NEUTROPHILS % (AUTO) 68.2 % (42.2-75.2); PLATELET COUNT (AUTO) 332 K/uL (140-450); RED BLOOD CELL COUNT(AUTO) 3.11 MIL/uL (4.20-5.40)
--- NOTE | 2019-10-02 07:05 | NUR ---
RECEIVED PATIENT REPORT FROM DIRECTOR OF FIRST IMPRESSIONS NURSE AT BEDSIDE FOR CONTINUITY OF CARE. PATIENT AWAKE AND ALERT, PT DENIES PAIN AT THIS TIME. RT AC IV SITE INTACT, ASYMPTOMATIC, SL. RIJ TRIPLE LUMEN INTACT, DRESSING DRY AND CLEAN, INFUSING IVF WELL. SKIN INTACT, RESPIRATIONS EVEN AND UNLABORED ON 3L O2 VIA NC. VERBALIZED PLAN OF CARE, SHE VERBALIZED UNDERSTANDING. UPDATED BOARD. PT ON DROPLET PRECAUTION D/O COVID, CALL LIGHT WITHIN REACH, WILL CONTINUE TO MONITOR PATIENT.
[2019-10-02 07:26] LABS: ANION GAP 11.4 (8-16); CREATININE 0.8 mg/dL (0.6-1.3); POTASSIUM 3.4 mmol/L (3.5-5.1)
[2019-10-02 08:00] VITALS: BP 109/55
[2019-10-02] MEDS: ASCORBIC ACID 500 MG TAB PO SCH (08:02)
[2019-10-02] MEDS: FAMOTIDINE 20 MG TAB PO SCH ×2 (08:02→20:45)
[2019-10-02] MEDS: ZINC SULF 220 MG CAP PO SCH (08:02)
[2019-10-02] MEDS: ENOXAPARIN 40 MG/0.4 ML SYR SUBQ SCH (08:03)
--- NOTE | 2019-10-02 08:05 | NUR ---
ORDERED MEDICATIONS GIVEN. PRN KDUR GIVEN FOR TODAY'S K LEVEL OF 3.4. PATIENT TOLERATED THEM WELL. HAS NO COMPLAINTS AT THIS TIME. DROPLET PRECAUTIONS IN PLACE, CALL LIGHT WITHIN REACH, WILL CONTINUE TO MONITOR PATIENT.
--- NOTE | 2019-10-02 11:10 | NUR ---
DR MAGALLON IN TO SEE PATIENT.
[2019-10-02 12:10] VITALS: BP 90/61
[2019-10-02] MEDS: LOPERAMIDE 2 MG CAP PO PRN (12:24)
--- NOTE | 2019-10-02 12:25 | NUR ---
ORDERED ANTIBIOTICS GIVEN. PATIENT HAD DIARRHEA, PRN IMODIUM GIVEN REQUESTED. PATIENT TOLERATED MEDICATIONS WELL. NO S/S DISTRESS NOTED. PATIENT O2 SATURATION 98% ON 3L, WEANING DOWN TO 2L O2 VIA NC. DROPLET PRECAUTIONS IN PLACE, CALL LIGHT WITHIN REACH. WILL CLOSELY MONITOR PATIENT.
[2019-10-02 16:00] VITALS: BP 107/67
--- NOTE | 2019-10-02 16:00 | NUR ---
PT RESTING COMFORTABLY IN BED WATCHING TV. VS WNL. DENIES PAIN. O2 SATURATION 96% ON 2L O2 VIA NC. ALL NEEDS MET AT THIS TIME. PATIENT HAS NO COMPLAINTS. DROPLET PRECAUTIONS IN PLACE, CALL LIGHT WITHIN REACH, WILL CONTINUE TO MONITOR PATIENT.
--- NOTE | 2019-10-02 18:40 | NUR ---
PATIENT SITTING ON SIDE OF BED EATING DINNER. NO COMPLAINTS AT THIS TIME. PT INFORM RN THAT SHE IS LACTOSE INTOLERANT, CALLED DIETARY, NO ANSWER. LEFT MESSAGE STATING PATIENT'S CONDITION. WILL CONTINUE TO MONITOR AND ENDORSE TO POKER IN NURSE.
--- NOTE | 2019-10-02 19:10 | NUR ---
RECEIVED BEDSIDE REPORT FROM DAY SHIFT NURSE. PATIENT IS AWAKE, ALERT, AND COOPERATIVE. RESPIRATION EVEN UNLABORED ON 2L NC O2. NO DISTRESS NOTED. SKIN IS WARM AND DRY. RIGHT IJ PICC LINE NOTED. INTACT AND PATENT. PLAN OF CARE WAS DISCUSSED. ALL SAFETY MEASURES IN PLACE. BED IS AT LOW POSITION. CALL LIGHT WITHIN REACH AND VERBALIZES ITS USE. WILL CONTINUE TO MONITOR.
[2019-10-02 20:00] VITALS: BP 103/46
--- NOTE | 2019-10-02 20:05 | NUR ---
INITIAL ASSESSMENT DONE. DENIES SHORTNESS OF BREATH AND FEVER. VITALS WERE TAKEN. PATIENT IS IN STABLE CONDITION. CALL LIGHT WITHIN REACH AND VERBALIZES ITS USE. MAINTAINED CONTACT AND DROPLET PRECAUTION. WILL CONTINUE TO MONITOR.
[2019-10-02] MEDS: TAMOXIFEN 10 MG TAB PO SCH (20:45)
--- NOTE | 2019-10-02 21:00 | NUR ---
ALL SCHEDULED MEDS WERE GIVEN PER ORDER. NO ASE NOTED. CALL LIGHT WITHIN REACH. MAINTAINED CONTACT AND DROPLET PRECAUTION ALL THE TIME. WILL CONTINUE TO MONITOR.
--- NOTE | 2019-10-02 21:49 | NUR ---
RECEIVED REPORT FROM AM SHIFT. PATIENT WAS SEEN AND ASSESSED. PATIENT IN NO APPARENT RESPIRATORY DISTRESS AT THIS TIME. SPO2 OF 96% ON 2L NASAL CANNULA. AUSCULTATION REVEALS BILATERAL COARSE BREATH SOUNDS. MDI PRN TX NO INDICATED AT THIS TIME. WILL CONTINUE TO MONITOR PATIENT.
--- NOTE | 2019-10-02 22:50 | NUR ---
CHECKED PATIENT. PROVIDED SNACKS AND FRESH WATER. CALL LIGHT WITHIN REACH. WILL CONTINUE TO MONITOR.
--- NOTE | 2019-10-02 23:45 | NUR ---
VITALS WERE TAKEN. PATIENT IN STABLE CONDITION. NO DISTRESS NOTED. CALL LIGHT WITHIN REACH. WILL CONTINUE TO MONITOR.
[2019-10-03] VITALS: BP 95/54
--- NOTE | 2019-10-03 02:04 | NUR ---
CHECKED PATIENT. PATIENT SLEEPING RESPIRATION EVEN UNLABORED ON 2L NC O2. NO DISTRESS NOTED. CALL LIGHT WITHIN REACH. WILL CONTINUE TO MONITOR.
[2019-10-03 04:00] VITALS: BP 96/64
--- NOTE | 2019-10-03 04:00 | NUR ---
VITALS WERE TAKEN. PATIENT BP 90/39 HR 74. BP AFTER 15MINS 88/40 HR 68. NOTIFY MD. MD IS AWARE. ORDERED TO RETAKE ANOTHER SETS OF VITALS WITHIN 30MINS. WILL CONTINUE TO MONITOR.
[2019-10-03] MEDS ORDERED: NACL 0.9% 500 ML IV ONE (04:20)
--- NOTE | 2019-10-03 04:35 | NUR ---
RETAKE BP. PATIENT BP 96/64 HR 68. WILL CONTINUE TO MONITOR.
--- NOTE | 2019-10-03 04:40 | NUR ---
ORDERED NOT TO ADMINISTERED IV BOLUS DUE TO PATIENTS BP IMPROVED. WILL CONTINUE TO MONITOR.
[2019-10-03 06:11] LABS: BASOPHILS # (AUTO) 0.1 K/uL (0.00-0.22); BASOPHILS % (AUTO) 1.7 % (0.0-2.0); EOSINOPHILS % (AUTO) 1.1 % (0.0-4.0); HEMATOCRIT 29.6 % (36-48); LYMPHOCYTES # (AUTO) 0.8 K/uL (2.5-16.5); LYMPHOCYTES % (AUTO) 26.1 % (20.5-51.1); MEAN CORPUSCULAR HEMOGLOBIN 30 pg (27-31); MEAN CORPUSCULAR HGB CONC 34 g/dL (33-37); MEAN CORPUSCULAR VOLUME 90.6 fL (80-94); MONOCYTES # (AUTO) 0.3 K/uL (0.8-1.0); MONOCYTES % (AUTO) 9.4 % (1.7-9.3); NEUTROPHILS # (AUTO) 1.9 K/uL (1.8-7.7); NEUTROPHILS % (AUTO) 61.7 % (42.2-75.2); PLATELET COUNT (AUTO) 429 K/uL (140-450); RED BLOOD CELL COUNT(AUTO) 3.27 MIL/uL (4.20-5.40); RED CELL DISTRIBUTION WIDTH 13.2 % (11.6-13.7); WHITE BLOOD COUNT (AUTO) 3.1 K/uL (4.8-10.8)
[2019-10-03 06:56] LABS: ANION GAP 11.8 (8-16); CARBON DIOXIDE 28.1 mmol/L (21-32); CREATININE 0.8 mg/dL (0.6-1.3); POTASSIUM 3.9 mmol/L (3.5-5.1)
--- NOTE | 2019-10-03 07:19 | NUR ---
ENDORSED PATIENT TO DAY SHIFT NURSE. PATIENT IN STABLE CONDITION. WILL CONTINUE TO MONITOR.
--- NOTE | 2019-10-03 07:21 | NUR ---
RECEIVED BEDSIDE REPORT FROM SCREENER PERFUMER NURSE FUNMILAYO FOR CONTINUITY OF CARE. PT IS AWAKE AND RESTING ON BED. PT IS AAOX4, ABLE TO MAKE NEED KNOWN AND FOLLOW COMMAND. RESPIRATION EVEN AND UNLABORED ON 2 LPM VIA NC, RR 23. DENIED PAIN, SOB AND DIZZINESS. IV ON RIJ TRIPLE LUMEN, CLEAN AND INTACT, INFUSING AT 10 ML/HR. SKIN CLEAN AND DRY. PT IS CONTINENT AND AMBULATORY. DISCUSSED PLAN OF CARE WITH PT AND PT VERBALIZED OK. TELE MONITOR ATTACHED. SAFETY MEASURES IN PLACE. BED IN LOW POSITION AND CALL LIGHT WITHIN REACH, INSTRUCTED PT TO USE THE CALL LIGHT FOR ANY ASSISTANCE AND PT AWARE.
[2019-10-03 08:00] VITALS: BP 103/59
[2019-10-03] MEDS: ASCORBIC ACID 500 MG TAB PO SCH (09:02)
[2019-10-03] MEDS: ZINC SULF 220 MG CAP PO SCH (09:02)
[2019-10-03] MEDS: FAMOTIDINE 20 MG TAB PO SCH (09:02)
[2019-10-03] MEDS: ENOXAPARIN 40 MG/0.4 ML SYR SUBQ SCH (09:04)
--- NOTE | 2019-10-03 09:20 | NUR ---
INFORMED PT THAT SHE WILL BE DC HOME TODAY AND PT AWARE. PER PT, SHE CALLS HER SISTER TO FIND OUT THE TIME. ADMINISTERED SCHEDULED AM MEDS PER MD ORDER, MEDS EDUCATION PROVIDED AND PT VERBALIZED UNDERSTANDING. PT TOLERATED PO AND SUBQ WELL. INTERMITTER DRY COUGHS NOTED. PT DENIED PAIN, SOB AND DIZZINESS. NO SIGNS OF DISTRESS NOTED. TELE MONITOR ATTACHED. INSTRUCTED AND DEMONSTRATED TO PT ON HOW TO USE THE PHONE IN HER ROOM. PER PT, SHE WILL ASK HER SISTER FOR TIME OF MACHINE SPECIALIST THEN SHE WILL CALL ME VIA [id number]. SAFETY MEASURES IN PLACE. BED IN LOW POSITION AND CALL LIGHT WITHIN REACH.
--- NOTE | 2019-10-03 11:55 | NUR ---
RECEIVED A CALL FROM PT'S ROOM. PER PT, HER SISTER CAN COME TO PICK HER UP IN AROUND THE AFTERNOON AND WILL BRING HER CLOTHES FROM HOME. EXPLAINED TO PT THAT AWAITING FOR DR ARREGUIN TO COMPLETE THE DISCHARGE AND ONCE SISTER ARRIVES TO THE FRONT LOBBY EXTENDER WILL PAGE TO BRING THE CLOTHES FOR HER, PT WAS AWARE AND UNDERSTOOD.
[2019-10-03 12:00] VITALS: BP 98/61
--- NOTE | 2019-10-03 13:04 | NUR ---
RECEIVED A CALL FROM PT'S DAUGHTER LINDA, UPDATED LINDA WITH PT'S CURRENT CONDITION AND LINDA WAS AWARE THAT PT IS GOING TO BE DC HOME TODAY. PER LINDA, HER AUNT WHICH IS PT'S SISTER WILL BE THE ONE TO ART COORDINATOR PATIENT. [phone], LINDA AND PT PREFERRED TO SEND PRESCRIPTION THAT PHARMACY. NOTIFIED DR ARREGUIN AND DR ARREGUIN WAS AWARE.
--- NOTE | 2019-10-03 13:14 | NUR ---
ADMINISTERED SCHEDULED ANTIBIOTIC ANCEF VIA IVPB PER MD ORDER, MED EDUCATION PROVIDED AND PT VERBALIZED UNDERSTANDING. PT AWAKE AND RESTING ON BED. EXPLAINED TO PT THAT DR ARREGUIN IS WORKING ON DISCHARGE DOCUMENT AND PT UNDERSTOOD. DENIED PAIN, SOB, AND DIZZINESS. NO SIGNS OF DISTRESS NOTED. TELE MONITOR ATTACHED. SAFETY MEASURES IN PLACE. INSTRUCTED PT TO USE THE CALL LIGHT OR TELE PHONE FOR ANY ASSISTANCE AND PT AWARE.
[2019-10-03] MEDS ORDERED: ALBU0.0912 INH (14:08)
[2019-10-03] MEDS ORDERED: VITC500 PO (14:08)
[2019-10-03] MEDS ORDERED: TAMO20TA3 PO (14:08)
[2019-10-03] MEDS ORDERED: ALBU-118 INH (14:23)
--- NOTE | 2019-10-03 14:41 | NUR ---
NOTIFIED PATIENT WITH PHONE THAT HER DISCHARGE DOCUMENT IS READY. PER PATIENT, SHE WILL CALL HER SISTER TO BRING HER CLOTHES NOW. AWAITING FOR SISTER TO ARRIVE FOR DC.
--- NOTE | 2019-10-03 15:20 | NUR ---
CHOP SAW OPERATOR WAS ASSISTING PT TO CHANGE INTO HER OWN CLOTHES. PT WAS COUGHING AND SAID "GIVE ME SOMETIMES." PROVIDED WARM WATER AND WAITING FOR PT AT BEDSIDE TO CHANGE.
--- NOTE | 2019-10-03 16:20 | NUR ---
DISCHARGE INSTRUCTION PROVIDED TO PT AT BEDSIDE. EDUCATED PT ON FOLLOW UP WITH MD AFTER DC, SEEK MEDICAL HELP IN CASE OF MEDICAL EMERGENCY, DISEASE MANAGEMENT, 10 WAYS TO MANAGE RESPIRATORY SYMPTOMS AT HOME AND HOME ISOLATION INSTRUCTIONS FOR COVID-19 , HARD COPY HAND OUTS ALSO PROVIDED. ALSO EDUCATED PT ON MEDICATIONS REGIMEN AND SIDE EFFECTS. ANSWERED ALL PT'S QUESTIONS AND PT VERBALIZED UNDERSTANDING. PT IS UP TO DATE WITH FLU VACCINE. PT AWARE THAT HER PRESCRIPTION SENT TO HER PREFERRED PHARMACY [facility] IN [place]. PROVIDED HARD COPY OF DISCHARGE INSTRUCTION AND HANDED PT'S CAR BENAVIDES TO PT. REMOVED RIJ AND PRESSURE ON FOR 10 MINS, NO BLEEDING AND CANNULA INTACT. REMOVED ALL ARM BANDS. PT PACKED UP ALL HER BELONGINGS. BOW STAPLER ASSISTED PT TO CHANGE INTO HER OWN CLOTHES. INSTRUCTED PT TO KEEP HER MASK ON AT ALL. BOW STAPLER ESCORTED PT TO THE FRONT LOBBY. PT IS GOING TO DC AT THIS TIME ACCOMPANY WITH HER SON AND SISTER. PT IS IN STABLE CONDITION.
== END 2019-10-03 16:20 | disposition home or self-care (01) | DRG 871 ==
LOC: MED 22:01 → EEVIPCON 09-27 01:43 → MIC 09-27 01:43 → MMU 10-01 13:47
PROVIDERS: ADMIT General Practice; ATTEND General Practice
PROC: 02HV33Z Insertion of Infusion Device into Superior Vena Cava, Percutaneous Approach (ICD-10-PCS; principal; 2019-09-27)
DX: A41.9 Sepsis, unspecified organism (principal); R65.21 Severe sepsis with septic shock; U07.1 COVID-19; J12.89 Other viral pneumonia; N39.0 Urinary tract infection, site not specified; E44.0 Moderate protein-calorie malnutrition; Z68.41 Body mass index [BMI] 40.0-44.9, adult; E87.6 Hypokalemia; E66.9 Obesity, unspecified; E83.39 Other disorders of phosphorus metabolism; J98.8 Other specified respiratory disorders; B96.20 Unspecified Escherichia coli [E. coli] as the cause of diseases classified elsewhere; Z85.3 Personal history of malignant neoplasm of breast; Z90.12 Acquired absence of left breast and nipple
CPT/HCPCS: 36415; 36600; 71045; 80048; 80053; 80305; 81001; 82550; 82553; 82728; 82803; 83036; 83605; 83615; 83690; 83735; 83880; 84100; 84443; 84484; 85025; 85610; 85651; 85730; 86140; 87040; 87070; 87081; 87086; 87186; 87804; 93005; 94664; 96365; 96367; 99291; J0456; J0690; J0696; J1642; J1644; J1650; J2270; J2405; J3370; J3535; J7030; J7060; Q0092